=== PATIENT | female | born 1980 | race Caucasian/White ===

== ENCOUNTER 2017-09-15 07:51 | Inpatient (IN) ==
--- OUTSIDE RECORDS SUMMARY | 2017-09-15 07:56 | External Medical Summary | Continuity of Care Document ---
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) - (routine) w/o abn findings 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 (general) - (routine) w/o abn findings Supervision of elderly multigravida, - second trimester 17 weeks gestation of - Supervision of elderly multigravida, - first trimester 10 weeks gestation of - Supervision of elderly multigravida, - second trimester 14 weeks gestation of - Pap Smear Screening, Cervix - Procedures Procedure Date OB Visit No Charge Results Test Name Date and Time Measure Units Reference Range Abnormal Flag Comments Unknown Advance Directives Directive Yes / No Effective Date File Name Unknown Encounters Encounter Practice Location Reason(s) Diagnoses Date Provider Care Team Description For Visit Members Associates Jayesh Supervision Bhupinder Referring In Womens of elderly -2016 Francois. 700 Provider: brea Pemberton, Medical Francois [address], [facility] Bhupinder Khan, Alexis [place], [id number] Jose Alfredo 120, 700 Medical [id number], josefina [facility] [place] gestation of [place], Jose Alfredo 120, tel:+ [phone], [place], [address] [place]. [id number]. tel: tel: [phone] Ashely Mcc[place] Supervision Bhpuinder Referring In Womens of elderly -2016 [place]. 700 Provider: aisha Pembertongravida, Medical Francois [address], second Center Bhupinder Khan, [place], [id number] Jose Alfredo 120, 700 Medical [id number], weeks Jayesh Ackerman gestation of [place], Jose Alfredo 120, tel:+ [phone], [place], [address] [place]. [id number]. tel: tel: [phone] Ashely [place] Supervision Bhupinder Referring In Womens of elderly -2016 [place]. 700 Provider: aisha Pembertongravida, Medical Francois [address], first Center Bhupinder Khan [place], Jose Alfredo 120, 700 Medical [id number], weeks Jayesh Ackerman gestation of [place], Jose Alfredo 120, tel:+ [phone], [place], [address] [place]. [id number]. 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 Provider: Health GENO, (general) 700 Sherry [address], (routine) w/o Alexis Kumari [place], [facility] Center Makeda Khan [facility] , findingsPap Jose Alfredo 120, Center Dr BISWAS Smear [place], Jose Alfredo 120, tel: Screening, [place], [place], [address] Cervix [id number], [id number]. [place]. 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 Provider: Health GENO, (general) 700 Sherry [address], (routine) w/o [place], abn findings Center Makeda Khan [facility] [id number], Jose Alfredo 120, Center Dr [place], Jose Alfredo 120, tel:[phone] [place], [address] [id number], [id number]. [place]. tel:9 [phone] Ashely Jayesh Elder In Womens -2010 [facility] [place], [address], [place], [place], [place], [place], [id number], [place], [address], [place]. tel:21 [phone] Family History Family Member Diagnosis Age At Onset Maternal Grandmother Hypertension Mother COPD Mother Epilepsy Paternal Aunt Cancer, breast Immunizations Vaccine Date Status Comments Influenza, injectable, quadrivalent, completed Source: Other Provider preservative free, 3 yrs or older Payers Payer name Insurance type Covered green party ID Authorization(s) [facility] [id number] [facility] [place] [id number] Social History Type Description Quantity Date Captured Alcohol Use Details Caffeine Use Details Unknown Tobacco Use Status Smoking Status Former smoker Vital Signs Date / Height Weight BMI Pulse Blood Temperature Respiratory Body Head BMI Time: Rate Pressure Rate Surface Circumference percentile Area 133.90 26.1 / lbs 5 mm[Hg] 4:33 kg/m PM eter (2) Chief Complaint And Reason For Visit Unknown Chief Complaint And Reason For Visit Reason For Referral Reason For Referral Unknown Plan Of Care Date Type Action Status Future Order: Lab Order Pap Smear With HPV Reflex If ASCUS Ordered ([id number]) Date Type Problem Goal Intervention Status Start Date Unknown. History Of Present Illness Encounter Date Complaint History Of Present Illness This patient has no known history of present illness Functional Status Encounter Date Functional Assessment Cognitive Assessment Unknown Medications Administered Medication Instructions Dosage Effective Dates (start - stop) Status Comments Drug Treatment Unknown Instructions Date Instruction Additional Information influenza vaccine environmental / work hazards travel use of any medications (including supplements, vitamins, herbs, OTC drugs) domestic violence seat belt use childbirth classes / hospital facilities hospital registration genetic testing Zika virus assessment & precautions HIV and other routine tests risk factors identified by history anticipated course of care nutrition and weight gain counseling, special diet toxoplasmosis precautions (cats / raw meat) sexual activity exercise indications for ultrasound
--- OUTSIDE RECORDS SUMMARY | 2017-09-15 07:56 | External Medical Summary | Continuity of Care Document ---
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) - (routine) w/o abn findings 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 exam (general) - (routine) w/o abn findings Abnormal glucose complicating - Supervision of elderly multigravida, - first trimester 10 weeks gestation of - Supervision of elderly multigravida, - second trimester 20 weeks gestation of - Supervision of elderly multigravida, - second trimester 20 weeks gestation of - Supervision of elderly multigravida, - second trimester 24 weeks gestation of - Supervision of elderly multigravida, - second trimester 17 weeks gestation of - Supervision of elderly multigravida, - second trimester 14 weeks gestation of - Supervision of elderly multigravida, - third trimester 30 weeks gestation of - Supervision of elderly multigravida, - third trimester Encounter for suprvsn of normal - , third trimester 28 weeks gestation of - Pap Smear Screening, Cervix - Procedures Procedure Date Glucose tolerance test (GTT) GTT-added samples Venpnctr fngr/heel/ear stick routne Results Test Name Date and Time Measure Units Reference Range Abnormal Flag Comments Unknown Advance Directives Directive Yes / No Effective Date File Name Unknown Encounters Encounter Practice Location Reason(s) Diagnoses Date Provider Care Team Description For Visit Members Ashely [place] Supervision of Nov-0 Bhupinder Referring In Womens elderly 3-201 [place]. 700 Provider: Health GENO, multigravida, 7 Medical [facility] Box third [id number] Center Bhupinder R, 1522, weeks gestation Jose Alfredo Khan, of 120, Medical [place], [facility] [id number], [place], Jose Alfredo 120, [place] [id number] Jayesh, tel: , [place]. [place], tel: [phone]. [id number] tel:[phone] Ashely [place] Abnormal glucose Oct-2 Bhupinder Referring In Womens complicating -201 [place]. 700 Provider: Health GENO, 7 Medical [facility] Bhupinder R, 1522, Jose Alfredo Khan, 120, Medical [facility] [id number], [place], Jose Alfredo 120, [place] [id number] Jayesh, tel: , [place]. [place], tel: [phone]. [id number] tel:[phone] Ashely [place] Supervision of Oct-1 Bhupinder Referring In Womens elderly 9-201 [place]. 700 Provider: Health GENO, multigravida, 7 Medical [facility] Box third Center Bhupinder R, 1522, trimesterEncounte Dr Jose Alfredo emerson Rousseau for suprvsn of 120, Medical [place], normal , [facility] [id number], third [place], Jose Alfredo 120, [place] weeks gestation [id number] Jayesh, tel: of , [place]. [place], tel: [phone]. [id number] tel:[phone] Ashely [place] Supervision of Sep-2 Bhupinder Referring In Womens elderly [place]. 700 Provider: Cheri LORA multigravida, 7 Medical [place] PO Box second Center Bhupinder R, 1522, [id number] weeks Jose Alfredo Khan, gestation of 120, Medical [place], Jayesh, [place] [id number], [place], Jose Alfredo 120, [place] [id number] Jayesh, tel:+ , [place]. [place] tel: [phone]. [id number] tel:[phone] Ashely [place] Supervision of Bhupinder Referring In Womens elderly [place]. 700 Provider: aisha Pembertongravimeilnda, 7 Medical [place] PO Box second Center Bhupinder R, 1522, [email or web address] weeks Jose Alfredo Khan, gestation of 120, Medical [place], Jayesh, [place] [id number], [place], Jose Alfredo 120, [place] [id number] Jayesh, tel:+ , [place]. [place] tel: [phone]. [id number] tel:[phone] Ashely [place] Supervision of Bhupinder Referring In Womens [facility] elderly [place]. 700 Provider: lorena Pembertonavimelinda, 7 Medical [place] PO Box second Center Bhupinder R, 1522, weeks Jose Alfredo Khan, gestation of 120, Medical [place], [facility] [id number], [place], Jose Alfredo 120, [place] [id number] Jayesh, tel:+ , [place]. [place] tel: [phone]. [id number] tel:[phone] Ashely [place] Supervision of Apr-0 Bhupinder Referring In Womens elderly [place]. 700 Provider: aisha Pembertongravida, 7 Medical [place] PO Box second Center Bhupinder R, 1522, weeks Jose Alfredo Khan, gestation of 120, Medical [place], Jayesh, [place] [id number], [place], Jose Alfredo 120, [place] [id number] Jayesh, tel: , [place]. [place] tel: [phone]. [id number] tel:[phone] Ashely [place] Supervision of Bhupinder Referring In Womens elderly [place]. 700 Provider: Health PA, multigravida, 7 Medical Francois PO Box second Center Bhupinder R, 1522, [email or web address] weeks , Jose Alfredo Espinoza, gestation of 120, Medical [place], [place], [place] [id number], [place], [facility] 120, [place] [id number] Jayesh, tel:+ , [place]. [place], tel: [phone]. [id number] tel:[phone] Asheyl [place] Supervision of Bhupinder Referring In Womens elderly [place]. 700 Provider: Cheri LORA, multigravida, 7 Medical Francois PO Box first [id number] Center Bhupinder R, 1522, weeks gestation , Jose Alfredo Rainta, of 120, Medical [facility] [id number], [place], [facility] 120, [place] [id number] Jayesh, tel: , [place]. [place], tel: [phone]. [id number] tel:[phone] Ashely [place] 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 pumper Eric Referring In Womens exam (general) Sherry. Provider: Cheri LORA, (routine) w/o abn 7 700 Sherry PO Box findingsPap Smear Candy Dhillon, 1522, Screening, Cervix Center Makeda [address] Dr, [facility], 120, [place] [id number], [facility] 120, [place] Jayesh [place], tel:+ [phone] [place], , [place]. [id number]. tel: tel: [phone] Ashely [place] 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 pumper Sep- Reyes Referring In Womens exam (general) Sherry. Provider: Cheri LORA, (routine) w/o abn 6 700 Sherry PO Box findings Candy Dhillon, 1522, Center Makeda [address] Dr, [facility], 120, [place] [id number], [facility] 120, [place] Jayesh [place], tel: [phone] [place], , [place]. [id number]. tel: tel:[phone] Ashely [place] Dec-2 Elder In Womens [facility], [address], [place], [place], [place], [address], [id number], [place]. [place] tel: [phone] Family History Family Member Diagnosis Age At Onset Maternal Grandmother Hypertension Mother COPD Mother Epilepsy Paternal Aunt Cancer, breast Immunizations Vaccine Date Status Comments Tdap completed Source: New Immunization Record Influenza, injectable, completed Source: Other Provider quadrivalent, preservative free, 3 yrs or older Influenza, injectable, completed Source: Other Provider quadrivalent, preservative free, 3 yrs or older Payers Payer name Insurance type Covered libertarian ID Authorization(s) [facility] [id number] [facility] [id number] Social History Type Description Quantity Date Captured Unknown Vital Signs Date / Height Weight BMI Pulse Blood Temperature Respiratory Body Head BMI Time: Rate Pressure Rate Surface Circumference percentile Area Unknown Chief Complaint And Reason For Visit Unknown Chief Complaint And Reason For Visit Reason For Referral Reason For Referral Unknown Plan Of Care Date Type Action Status Appointment Lety Bacon BOOKED Future Order: Radiology Order OB Detailed Complete Ultrasound Ordered ([id number]) Future Order: Lab Order Pap Smear With [...]
--- OUTSIDE RECORDS SUMMARY | 2017-09-15 07:56 | External Medical Summary | Continuity of Care Document ---
:1980 Author Organization [facility] Address [address] [place], [place] [id number] Phone Support Name Relationship Address Phone Link Bacon spouse [address] [place] [address] Allergies, Adverse Reactions, Alerts Substance Reaction Severity Status No Known Drug Allergies Unknown Active Medications Medication Instructions Dosage Effective Dates Status Comments (start - stop) ZYRTEC (unknown - Active strength) Tums 200 mg calcium - Active (500 mg) chewable tablet ORAL TABLET - Active Tylenol 325 mg tablet take 1 tablet by oral - Active route every 4 hours as needed Problems Condition Effective Dates (start - stop) Clinical Status 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) - (routine) w/o abn findings 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) - (routine) w/o abn findings Supervision of elderly multigravida, - third trimester 34 weeks gestation of - Supervision of elderly multigravida, - first trimester 10 weeks gestation of - Supervision of elderly multigravida, - third trimester Abnormal glucose complicating - 32 weeks gestation of - Supervision of elderly [...] of elderly multigravida, - third trimester Encounter For Screening For - Streptococcus B 36 weeks gestation of - Supervision of elderly multigravida, - third trimester 30 weeks gestation of - Supervision of elderly multigravida, - third trimester 37 weeks gestation of - Supervision of elderly multigravida, - third trimester Encounter for suprvsn of normal - , third trimester 28 weeks gestation of - Supervision of elderly multigravida, - third trimester 36 weeks gestation of - Abnormal glucose complicating - Pap Smear Screening, Cervix - Procedures Procedure Date OB Visit No Charge Results Test Name Date and Time Measure Units Reference Range Abnormal Flag Comments Unknown Advance Directives Directive Yes / No Effective Date File Name Unknown Encounters Encounter Practice Location Reason(s) Diagnoses Date Provider Care Team Description For Visit Members Ashely [place] Supervision of Bhupinder Referring In Womens elderly [place]. 700 Provider: brea Pemberton, 7 Medical Francois PO Box third [id number] Center Bhupinder R, 1522, weeks gestation Jose Alfredo Khan, of 120, Medical [place], Briseida [place] [id number], [place], Jose Alfredo 120, [place] [id number] Jayesh, tel: , [place]. [place], [id number] tel: [phone]. [id number] tel:[phone] Ashely [place] Supervision of Bhupinder Referring In Womens elderly [place]. 700 Provider: lorena Pembertonavimelinda, 7 Medical Francois PO Box third Center Bhupinder R, 1522, trimesterEncounte Jose Alfredo Khan 700 [place], r For 120, Medical [place], Screening For Briseida [place] Dr [id number], Streptococcus B36 [place], Jose Alfredo 120, [place] weeks gestation [id number] Jayesh, tel: of , [place]. [place] tel: [phone]. [id number] tel:[phone] Ashely Mcc[place] Supervision of Dec-1 Bhupinder Referring In Womens Ultrasound elderly 3- [place]. 700 Provider: aisha Pembertongravimelinda, 7 Medical [place] PO Box third [email or web address] Center Bhupinder R, 1522, weeks gestation Jose Alfredo Khan, of 120, Medical [facility] [id number], [place], Jose Alfredo 120, [place] [id number] Jayesh, tel: , [place]. [place], tel: [phone]. [id number] tel:[phone] Ashely M[place] Supervision of Dec-0 Bhupinder Referring In Womens elderly 1- [place]. 700 Provider: brea Pemberton, 7 Medical [place] PO Box third [email or web address] Center Bhupinder R, 1522, weeks gestation Jose Alfredo Khan, of 120, Medical [facility] [id number], [place], Jose Alfredo 120, [place] [id number] Jayesh, tel: , [place]. [place], tel: [phone]. [id number] tel:[phone] Ashely [place] Supervision of Jul-1 Bhupinder Referring In Womens elderly 7- [place]. 700 Provider: brea Pemberton, 7 Medical [place] PO Box third Center Bhupinder R, 1522, trimesterAbnormal Jose Alfredo Khan [place], glucose 120, Medical [place], complicating Briseida [place] Dr [id number], [email or web address] weeks GARIMA, Jose Alfredo 120, [place] gestation of [id number] Jayesh, tel: , [place]. [place] tel: [phone]. [id number] tel:[phone] Ashely M[place] Supervision of Nov-0 Bhupinder Referring In Womens elderly 3-201 [place]. 700 Provider: lorena Pembertonavimleinda, 7 Medical [place] PO Box third [id number] Center Bhupinder R, 1522, weeks gestation Jose Alfredo Khan, of 120, Medical [facility] [id number], [place], Jose Alfredo 120, [place] [id number] Jayesh, tel: , [place]. [place] tel: [phone]. [id number] tel:[phone] Ashely M[place] Abnormal glucose Oct-2 Bhupinder Referring In Womens complicating 3-201 [place]. 700 Provider: Health GENO, 7 [facility] Center Bhupinder R, 1522, , Jose Alfredo Makeda [place], 120, Medical [place], [facility] [id number], [place], Jose Alfredo 120, [place] [id number] Jayesh, tel: , [place]. [place], tel: [phone]. [id number] tel:[phone] Ashely Mccon[place] Supervision of Oct-1 Bhupinder Referring In Womens elderly 9-201 [place]. 700 Provider: Health GENO, multigravida, 7 [facility] third Center Bhuipnder R, 1522, trimesterEncounte , Jose Alfredo 700 [place], r for suprvsn of 120, Medical [place], normal , [facility] [id number], third [id number] [place], Jose Alfredo 120, [place] weeks gestation [id number] Jayesh, tel: of , [place]. [place] tel: [phone]. [id number] tel:[phone] Ashely Mcconnell Supervision of Sep-2 Bhupinder Referring In Womens elderly 1-201 [place]. 700 Provider: Health GENO, multigravida, 7 [facility] second Center Bhupinder R, 1522, [id number] weeks Jose Alfredo Khan, gestation of 120, Medical [place], [facility] [id number], [place], Jose Alfredo 120, [place] [id number] Jayesh, tel: , [place]. [place] tel: [phone]. [id number] tel:[phone] Ashely Mcconnell Supervision of Aug-2 Bhupinder Referring In Womens elderly 4-201 [place]. 700 Provider: Health GENO, multigravida, 7 [facility] second Center Bhupinder R, 1522, [id number] weeks Jose Alfredo Khan, gestation of 120, Medical [place], Jayesh, [place] [id number], [place], Jose Alfredo 120, [place] [id number] Jayesh, tel: , [place]. [place] tel: [phone]. [id number] tel:[phone] Ashely Mcconnell Supervision of Bhupinder Referring In Womens Ultrasound elderly - [place]. 700 Provider: lorena Pembertonavimelinda, 7 Medical [facility] Box second Center Bhupinder R, 1522, weeks Jose Alfredo Khan, gestation of 120, Medical [place], Jayesh, [place] [id number], [place], Jose Alfredo 120, [place] [id number] Jayesh, tel: , [place]. [place], tel: [phone]. [id number] tel:[phone] Ashely Mcconnell Supervision of Bhupinder Referring In Womens elderly 3- [place]. 700 Provider: brea Pemberton, 7 Medical [facility] Box second Center Bhupinder R, 1522, [id number] weeks Jose Alfredo Khan, gestation of 120, Medical [place], Jayesh, [place] [id number], [place], Jose Alfredo 120, [place] [id number] Jayesh, tel: , [place]. [place] tel: [phone]. [id number] tel:[phone] Ashely Mcconnell Supervision of Bhupinder Referring In Womens elderly - [place]. 700 Provider: brea Pemberton, 7 Medical [facility] Box second Center Bhupinder R, 1522, [email or web address] weeks Jose Alfredo Khan, gestation of 120, Medical [place], Jayesh, [place] [id number], [place], Jose Alfredo 120, [place] [id number] Jayesh, tel: , [place]. [place] tel: [phone]. [id number] tel:[phone] Ashely Mcconnell Supervision of Bhupinder Referring In Womens elderly - [place]. 700 Provider: brea Pemberton, 7 Medical [facility] Box first [id number] Center Bhupinder R, 1522, weeks gestation Jose Alfredo Khan, of 120, Medical [place], Jayesh, [place] [id number], [place], Jose Alfredo 120, [place] [id number] Jayesh, tel: , [place]. [place] tel: [phone]. [id number] tel:[phone] Ashely Mcconnell Encntr for slat grader Oct-0 Eric Referring In Womens exam (general) Sherry. Provider: Health GENO, (routine) w/o abn 7 700 Sherry PO Box findingsPap Smear Medical Eric J, 1522, Screening, Cervix Center [address] Dr Alexis, [facility] Medical [place], 120, Center [id number], Jayesh, [facility] 120, Jayesh [place], tel:[phone] [place], , [place]. [id number]. tel: tel:[phone] Ashely Mcconnell Encntr for slat grader Eric Referring In Womens exam (general) Sherry. Provider: Cheri LORA, (routine) w/o abn 6 700 Sherry PO Box findings Medical Eric J, 1522, Center [address] Dr Alexis, [facility] Medical [place], 120, [place] [id number], Jayesh, [facility] 120, Jayesh [place], tel:[phone] [place], , [place]. [id number]. tel: tel:[phone] Ashely Mcconnell Elder In Womens Jackie. Health GENO, [address] [place], 1522, [place], [place], [address], [id number], [place]. [place] tel: tel:[phone] Family History Family Member Diagnosis Age At [...] Insurance type Covered green party ID Authorization(s) [facility] [id number] [facility] [id number] Social History Type Description Quantity Date Captured Alcohol Use Details Caffeine Use Details Unknown Tobacco Use Status Smoking Status Former smoker Vital Signs Date / Height Weight BMI Pulse Blood Temperature Respiratory Body Head BMI Time: Rate Pressure Rate Surface Circumference percentile Area 158.60 30.9 117/2017 lbs 7 mm[Hg] 3:06 kg/m PM eter (2) Chief Complaint And Reason For Visit Unknown Chief Complaint And Reason For Visit Reason For Referral Reason For Referral Unknown Plan Of Care Date Type Action Status Appointment Lety Bacon BOOKED Future Order: Radiology Order OB Detailed Complete Ultrasound Ordered ([id number]) Future Order: Radiology Order Ultrasound OB Follow-up ([id number]) Ordered Future Order: Lab Order Pap Smear With [...]
--- OUTSIDE RECORDS SUMMARY | 2017-09-15 07:56 | External Medical Summary | Continuity of Care Document ---
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 700 Provider: aisha Pembertongravimelinda, 7 Medical Francois [address] third Center Bhupinder R, 1522, trimesterAbnormal , Jose Alfredo 700 Alexis, glucose 120, Medical [place], complicating [facility] [id number], [id number] weeks [place], [facility] 120, [place] gestation of [id number] Jayesh, tel: , [place]. [place], tel: [phone]. [id number] tel:[phone] Ashely Mcconnell Supervision of 0 Bhupinder Referring In Womens elderly - Roy. 700 Provider: Cheri LORA, lroenaavimelinda, 7 Medical Francois [address] third [id number] Center Bhupinder R, 1522, weeks gestation Jose Alfredo Khan, of 120, Medical [facility]esh [facility] [id number], [place], Jose Alfredo 120, [place] [id number] Jayesh, tel: , . [place], tel: [phone]. [id number] tel:[phone] Ashely Mcconnell Abnormal glucose Oct-2 Bhupinder Referring In Womens complicating -201 Roy. 700 Provider: Cheri LORA, 7 Medical [facility] Box Center Bhupinder R, 1522, Dr Jose Alfredo Makeda Espinoza, 120, Medical [facility] [id number], [place], Jose Alfredo 120, [place] [id number] Jayesh, tel: , [facility] tel: [phone]. [id number] tel:[phone] Ashely Mcconnell Supervision of Bhupinder Referring In Womens elderly Roy. 700 Provider: lorena Pembertonavimelinda, 7 [facility] third Center Bhupinder R, 1522, trimesterEncounte Jose Alfredo Khan 700 [place], r for suprvsn of 120, Medical [place], normal , [address] [id number], third [id number] [place], Jose Alfredo 120, [place] weeks gestation [id number] Jayesh, tel: of , [place]. [place], tel: [phone]. [id number] tel:[phone] Ashely Mcconnell Supervision of Sep-2 Bhupinder Referring In Womens elderly Roy. 700 Provider: brea Pemberton, 7 [facility] second Center Bhupinder R, 1522, [id number] weeks Jose Alfredo Khan, gestation of 120, Medical [place], Jayesh, [place] , [place], Jose Alfredo 120, [place] [id number] Jayesh, tel: , [place]. [place], tel: [phone]. [id number] tel:[phone] Ashely Mcconnell Supervision of Apr- Bhupinder Referring In Womens elderly Roy. 700 Provider: rbea Pemberton, 7 Medical [facility] second Center Bhupinder R, 1522, [id number] weeks Jose Alfredo Khan, gestation of 120, Medical [place], Jayesh, [place] [id number], [place], Jose Alfredo 120, [place] [id number] Jayesh, tel: , [place]. [place], tel: [phone]. [id number] tel:[phone] Ashely Mcconnell Supervision of Apr-2 Bhupinder Referring In Womens Ultrasound elderly Roy. 700 Provider: brea Pemberton, 7 [facility] second Center Bhupinder R, 1522, [email or web address] weeks Jose Alfredo Khan, gestation of 120, Medical [place], Jayesh, Briseida Khan [id number], [place], Jose Alfredo 120, [place] [id number] Jayesh, tel: , [place]. [place] tel: [phone]. [id number] tel:[phone] Ashely Mcconnell Supervision of Bhupinder Referring In Womens elderly 3-201 Roy. 700 Provider: aisha Pembertongravimelinda, 7 Medical Francois [address] second Center Bhupinder R, 1522, [id number] weeks Jose Alfredo Khan, gestation of 120, Medical [place], Mcconnell, [place] [id number], [place], [facility] 120, [place] [id number] Jayesh, tel: , [place]. [place], tel: [phone]. [id number] tel:[phone] Ashely Mcconnell Supervision of Bhupinder Referring In Womens elderly 3-201 Roy. 700 Provider: aisha Pembertongravimelinda, 7 Medical Francois PO Box second Center Bhupinder R, 1522, weeks , Jose Alfredo Escalantechita, gestation of 120, Medical [place], Mcconnell, [place] [id number], [place], [facility] 120, [place] [id number] Jayesh, tel: , [place]. [place], tel: [phone]. [id number] tel:[phone] Ashely Mcconnell Supervision of Bhupinder Referring In Womens elderly 4-201 Roy. 700 Provider: brea Pemberton, 7 Medical Francois PO Box first [email or web address] Center Bhupinder R, 1522, weeks gestation , Jose Alfredo Espinoza, of 120, Medical GARIMA [facility] [id number], [place], [facility] 120, [place] [id number] Jayesh, tel: , [place]. [place], tel: [phone]. [id number] tel:[phone] Ashely Mcconnell Encntr for armhole sewer Eric Referring In Womens exam (general) - Sherry. Provider: Cheri LORA, (routine) w/o abn Sherry PO Box findingsPap Smear Medical Eric J, 1522, Screening, [facility] [address], [facility], 120, Center [id number], Mcconnell, [facility] 120, [place] Jayesh PAINTING, tel: [phone] [place], , [place]. [id number]. tel: tel: [phone] Associates Jayesh Encntr for armhole sewer Reyes Referring In Womens exam (general) Sherry. Provider: Health GENO, (routine) w/o abn 6 700 Sherry PO Box findings Medical Reyes J, 1522, Center 700 Dr Alexis, Jose Alfredo Medical [place], 120, Center Dr [id number], Jayesh, [facility] 120, [place] Jayesh PAINTING, tel:[phone] [place], [id number] , [place]. [id number]. tel: tel:[phone] Ashely Mcconnell Elder In Womens 9 Jackie. Health GENO, [address] [place], 1522, Alexis, [place], [place], [address], [id number], [place]. [place] tel: tel:[phone] Family History Family Member Diagnosis Age At Onset Maternal Grandmother Hypertension Mother COPD Mother Epilepsy Paternal Aunt Cancer, breast Immunizations Vaccine Date Status Comments Tdap completed Source: New Immunization Record Influenza, injectable, completed Source: Other Provider quadrivalent, preservative free, 3 yrs or older Influenza, injectable, completed Source: Other Provider quadrivalent, preservative free, 3 yrs or older Payers Payer name Insurance type Covered democrat ID Authorization(s) [facility] [id number] [facility] [id number] Social History Type Description Quantity Date Captured Alcohol Use Details Caffeine Use Details Unknown Tobacco Use Status Smoking Status Former smoker Vital Signs Date / Height Weight BMI Pulse Blood Temperature Respiratory Body Head BMI Time: Rate Pressure Rate Surface Circumference percentile Area 152.00 29.6 lbs 8 mm[Hg] 3:23 kg/m PM eter (2) Chief Complaint And Reason For Visit Unknown Chief Complaint And Reason For Visit Reason For Referral Reason For Referral Unknown Plan Of Care Date Type Action Status Appointment Lety Bacon BOOKED Future Order: Radiology Order OB Detailed Complete Ultrasound Ordered ([id number]) Future Order: Lab Order Pap Smear With [...]
--- OUTSIDE RECORDS SUMMARY | 2017-09-15 07:56 | External Medical Summary | Continuity of Care Document ---
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 700 Provider: lorena Pembertonavimelinda, 7 Medical [place] [address], second Center Alexis Rodriguez [place], [id number] Jose Alfredo Khan [id number], weeks 120, Medical [place] gestation of [facility] tel: [place], Jose Alfredo 120, [id number] [facility] , [place]. [place], tel:[phone]. [id number] tel:[phone] Ashely Mcconnell Supervision Bhupinder Referring In Womens of elderly 4-201 [place]. 700 Provider: lorena Pembertonavimelinda, 7 Medical [place] [address], second Center Alexis Rodriguez MA, [id number] Jose Alfredo Khan [id number], weeks 120, Medical [place] gestation of [facility] tel: [place], Jose Alfredo 120, [address] [id number] [facility] , . [place], tel:[phone]. [phone] tel:[phone] Ashely Mcconnell Supervision Bhupinder Referring In Womens Ultrasound of elderly 4-201 [place]. 700 Provider: lorena Pembertonavimelinda, 7 Medical [place] [address], second Center Alexis Rodriguez KS, [id number] Jose Alfredo Khan [id number], weeks 120, Medical [place] gestation of [facility] tel: [place], Jose Alfredo 120, [address] [id number] [facility]. [place], tel:[phone]. [id number] tel:[phone] Ashely Mcconnell Supervision Apr-0 Bhupinder Referring In Womens of elderly 3-201 [place]. 700 Provider: lorena Pembertonavimelinda, 7 Medical [place] [address], second Center Alexis Rodriguez MA, [email or web address] Jose Alfredo Khan [id number], weeks 120, Medical [place] gestation of [facility] tel: [place], Jose Alfredo 120, [address] [id number] [facility]. [place], tel:[phone]. [phone] tel:[phone] Ashely Mcconnell Supervision Mar- Bhupinder Referring In Womens of elderly 3-201 [place]. 700 Provider: Health GENO, multigravida, 7 Medical [place] [address], second Center Alexis Rodriguez MA, [id number] , [place] [id number], weeks 120, Medical gestation of [facility] tel: [place], Jose Alfredo 120, [id number] [place], , [place]. [place], tel: [phone]. [id number] tel:[phone] Ashely Mcconnell Supervision Feb- Bhupinder Referring In Womens of elderly 4-201 [place]. 700 Provider: Cheri LORA multigravida, 7 Medical [place] [address], first Center Alexis Rodriguez MA, [email or web address] , [place] [id number], weeks 120, Medical [place] gestation of [facility] tel: [place], Jose Alfredo 120, [id number] [place], , [place]. [place], tel: [phone]. 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 Provider: Health GENO, (general) 7 Sherry [address], (routine) w/o [place] Kumari [place], abn Center [facility] [id number], findingsPap , [facility] Smear 120, Center tel: Screening, Mcconnell, [facility] 120, [address] Cervix GARIMA, Jayesh, [id number] [place], , [place]. [id number]. 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 Provider: Health GENO, (general) 6 700 Sherry [address], (routine) w/o [place] Kumari [place], abn findings Center [facility] [id number], [facility] [place] 120, Center tel: Mcconnell, Jose Alfredo 120, [address] [place], Jayesh, [id number] [place], , [place]. [id number]. tel: tel: [phone] Ashely Mcconnell Elder In Womens 9-201 Jackie. [employer] [place], [address], [place], [place], [place], [place], [id number], [place] [address], tel:[phone] [place]. [address] tel: [phone] Family History Family Member Diagnosis Age At Onset Maternal Grandmother Hypertension Mother COPD Mother Epilepsy Paternal Aunt Cancer, breast Immunizations Vaccine Date Status Comments Influenza, injectable, quadrivalent, completed Source: Other Provider preservative free, 3 yrs or older Payers Payer name Insurance type Covered alliance party ID Authorization(s) [facility] [place] [id number] Social History Type Description Quantity Date Captured Alcohol Use Details Caffeine Use Details Unknown Tobacco Use Status Smoking Status Former smoker Vital Signs Date / Height Weight BMI Pulse Blood Temperature Respiratory Body Head BMI Time: Rate Pressure Rate Surface Circumference percentile Area 145.20 28.3 100/65 -2016 lbs 5 mm[Hg] 4:21 kg/m PM eter (2) 145.20 28.3 -2016 lbs 5 4:20 kg/m PM eter (2) 26.7 -2016 3 4:18 kg/m PM eter (2) Chief Complaint And Reason For Visit Unknown Chief Complaint And Reason For Visit Reason For Referral Reason For Referral Unknown Plan Of Care Date Type Action Status Appointment Lety Bacon BOOKED Future Order: Radiology Order OB Detailed Complete Ultrasound Ordered ([id number]) Future Order: Lab Order Pap Smear With [...]
[2017-09-15] MEDS ORDERED: CALCIUM CARBONATE Chewable 500mg TABLET PO PRN (07:57)
[2017-09-15] MEDS ORDERED: MAG-AL + SIM ORAL LIQUID 30ml PO PRN (07:57)
[2017-09-15] MEDS ORDERED: CARBOPROST 250 MCG/ML INJECTION IM PRN (07:57)
[2017-09-15] MEDS ORDERED: ACETAMINOPHEN 500 MG TABLET PO PRN (07:57)
[2017-09-15] MEDS ORDERED: OXYTOCIN DRIP 30 UNIT/500 ML ML IV PRN (07:57)
[2017-09-15] MEDS ORDERED: LIDOCAINE 1% (10mg/ml) 2mL INJ PF SDV ID PRN (07:57)
[2017-09-15] MEDS ORDERED: METHYLERGONOVINE 0.2 MG/ML INJECTION IM PRN (07:57)
--- OUTSIDE RECORDS SUMMARY | 2017-09-15 07:57 | External Medical Summary | Continuity of Care Document ---
:1980 Author Organization [facility] Allergies Active Description Code Type Severity Reaction Onset Reported/ Identified Relationship Clinical to Patient Status Yes No Known 04336 3 N/A N/A Drug 0 Allergies Medications Medication Packaging Start Date Stop Date Route Dosage Sig Tablet 09/27/2013 10/20/2016 MULTIPLE take 1 VITAMINS tablet by oral route every day with food Tablet 11/27/2015 09/29/2016 DESOGEN take 1 tablet by oral route every day Tablet 09/29/2016 10/21/2016 DESOGEN take 1 tablet by oral route every day Tablet 10/21/2016 02/16/2017 DESOGEN take 1 tablet by oral route every day Problems Date Dx Attending Type Code Diagnosis Diagnosed By Coded 05/07/2017 Francois Roe O09.522 Supervision of elderly multigravida, second trimester 05/07/2017 Francois Roe Z3A.20 20 weeks gestation of 07/06/2017 Francois Roe O09.523 Supervision of elderly multigravida, third trimester 07/06/2017 Francois Roe Z34.83 Encounter for suprvsn of normal , third trimester 07/06/2017 Francois Roe Z3A.28 28 weeks gestation of 07/07/2017 Francois Roe O99.810 Abnormal glucose complicating 07/07/2017 Francois Roe O99.810 Abnormal glucose complicating 07/17/2017 Francois Roe O09.523 Supervision of elderly multigravida, third trimester 07/17/2017 Francois Roe Z34.83 Encounter for suprvsn of normal , third trimester 07/17/2017 Francois oRe Z3A.28 28 weeks gestation of 08/26/2017 Francois Roe O09.523 Supervision of elderly multigravida, third trimester 08/26/2017 Francois Roe3A.36 36 weeks gestation of Procedures Code Description [place] [address] OB US, 05/07/2017 DETAILED, SNGL FETUS 60687 Venpnctr 07/02/2017 fngr/heel/ear stick routne 54733 OB Visit No 07/02/2017 Charge 67594 Glucose test 07/02/2017 12894 Hematocrit 07/02/2017 blood count 26870 Hemoglobin 07/02/2017 count, colorimetric 32954 Immuniz 07/02/2017 admnin, 1 vac, sngl/combo 01107 TDAP VACCINE 07/02/2017 >7 IM 96847 Venpnctr 07/06/2017 fngr/heel/ear stick routne 45216 Glucose 07/06/2017 tolerance test (GTT) 16813 GTT-added 07/06/2017 samples 59365 Ultrasnd preg 08/26/2017 uterus, flwup/repeat Results There is no data. Encounters ACCT No. Visit Discharge Status Pt. Type Provider Facility Loc./Unit Complaint Date/Time [id number] 08/26/2017 08/26/2017 [facility] Outpatient Bhupinder, 15:35:00 23:59:59 Francois Santacruz [id number] 08/26/2017 08/26/2017 [facility] Outpatient Bhupinder, 15:15:00 23:59:59 Francois Santacruz [id number] 08/14/2017 08/14/2017 [facility] Outpatient Bhupinder, 15:15:00 23:59:59 Francois Santacruz [id number] 08/05/2017 08/05/2017 [facility] Outpatient Bhupinder, 09:06:00 23:59:59 Francois Santacruz [id number] 07/31/2017 07/31/2017 [facility] Outpatient Bhupinder, 15:15:00 23:59:59 Francois Santacruz [id number] 07/17/2017 07/17/2017 [facility] Outpatient Bhupinder, 15:00:00 23:59:59 Francois Santacruz [id number] 07/06/2017 07/06/2017 [facility] Outpatient Bhupinder, 07:13:00 23:59:59 Francois Santacruz [id number] 07/03/2017 07/03/2017 [facility] Outpatient Bhupinder, 09:57:00 23:59:59 Francois Santacruz [id number] 07/02/2017 07/02/2017 [facility] Outpatient Bhupinder, 15:00:00 23:59:59 Francois Santacruz [id number] 07/02/2017 07/02/2017 [facility] Outpatient John, 00:00:00 23:59:59 Zaira Kumar [id number] 06/04/2017 06/04/2017 [facility] Outpatient Bhupinder, 16:15:00 23:59:59 Francois Santacruz [id number] 05/07/2017 05/07/2017 [facility] Outpatient Bhupinder, 16:00:00 23:59:59 Francois Santacruz [id number] 05/07/2017 05/07/2017 [facility] Outpatient Bhupinder, 15:45:00 23:59:59 Francois Santacruz [id number] 04/16/2017 04/16/2017 [facility] Outpatient Bhupinder, 16:20:00 23:59:59 Francois Santacruz [id number] 03/26/2017 03/26/2017 [facility] Outpatient Bhupinder, 16:30:00 23:59:59 Francois Santacruz [id number] 03/20/2017 03/20/2017 [facility] Outpatient Bhupinder, 08:48:00 23:59:59 Francois Santacruz [id number] 02/25/2017 02/25/2017 [facility] Outpatient Bhupinder, 15:45:00 23:59:59 Francois Santacruz [id number] 10/21/2016 10/21/2016 [facility] Outpatient Reyes, 16:00:00 23:59:59 Sherry Dhillon [id number] 09/29/2016 09/29/2016 [facility] Outpatient Reyes, 10:42:00 23:59:59 Sherry Dhillon [id number] 11/27/2015 11/27/2015 [facility] Outpatient Reyes, 13:09:00 23:59:59 Sherry Dhillon [id number] 10/10/2015 10/10/2015 [facility] Outpatient Reyes, 15:15:00 23:59:59 Sherry Dhillon [id number] 10/02/2015 10/02/2015 [facility] Outpatient Reyes, 08:48:00 23:59:59 Sherry Dhillon [id number] 09/03/2017 Document 16:00:00 Registration [id number] 10/21/2016 Document 16:09:53 Registration
--- OUTSIDE RECORDS SUMMARY | 2017-09-15 07:57 | External Medical Summary | Continuity of Care Document ---
:1980 Author Organization [facility] Address [address] [place], [place] [id number] Phone Support Name Relationship Address Phone Link Bacon spouse [address] [place] [address] Allergies, Adverse Reactions, Alerts Substance Reaction Severity Status No Known Drug Allergies Unknown Active Medications Medication Instructions Dosage Effective Dates Status Comments (start - stop) ZYRTEC (unknown - Active strength) Tylenol 325 mg tablet take 1 tablet by oral - Active route every 4 hours as needed ORAL TABLET - Active Tums 200 mg calcium - Active (500 mg) chewable tablet Problems Condition Effective Dates (start - stop) Clinical Status 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 700 Provider: brea Pemberton, 7 Medical Francois [address] [id number] [place] Bhupinder Santacruz, 1522, weeks gestation Jose Alfredo Khan, of 120, Medical [facility]esh [facility] [id number], [place], [facility] 120, [place] [id number] Jayesh, tel: , [place]. [place], tel: [phone]. [id number] tel:[phone] Ashely Mcconnell Supervision of Bhupinder Referring In Womens elderly [place]. 700 Provider: brea Pemberton, 7 Medical Franc[place] [address] [place] Bhupinder Santacruz, 1522, trimesterAbnormal Jose Alfredo Khan, glucose 120, Medical [place], complicating [facility] [id number], [id number] weeks GARIMA [facility] 120, [place] gestation of [id number] Jayesh, tel: , [place]. [place], tel: [phone]. [id number] tel:[phone] Ashely Mcconnell Supervision of Bhupinder Referring In Womens elderly 3-201 [place]. 700 Provider: lorena Pembertonavimelinda, 7 Medical [place] [address] [email or web address] Center Bhupnider Santacruz, 1522, weeks gestation Jose Alfredo Khan, of 120, Medical Jayesh [facility] [id number], [place], Jose Alfredo 120, [place] [id number] Jayesh, tel: , [place]. [place], tel: [phone]. [id number] tel:[phone] Ashely Mcconnell Abnormal glucose Oct-2 Bhupinder Referring In Womens complicating 3-201 [place]. 700 Provider: Health GENO, 7 [facility] Bhupinder R, 1522, , Jose Alfredo Makeda Espinoza, 120, Medical [place], [facility] [id number], [place], Jose Alfredo 120, [place] [id number] Jayesh, tel: , [place]. [place], tel: [phone]. [id number] tel:[phone] Ashely Mcconnell Supervision of Oct-1 Bhupinder Referring In Womens elderly 9-201 [place]. 700 Provider: Health GENO, multigravida, 7 [facility] third Center Bhupinder R, 1522, trimesterEncounte , [facility] 700 emerson Espinoza for suprvsn of 120, Medical [place], normal , [facility] [id number], third [id number] [place], Jose Alfredo 120, [place] weeks gestation [id number] Jayesh, tel: of , [place]. [place], tel: [phone]. [id number] tel:[phone] Ashely Mcconnell Supervision of Sep-2 Bhupinder Referring In Womens elderly 1-201 [place]. 700 Provider: Health GENO, multigravida, 7 [facility] second Center Bhupinder R, 1522, [email or web address] weeks Jose Alfredo Khan, gestation of 120, Medical [place], [facility] [id number], [place], Jose Alfredo 120, [place] [id number] Jayesh, tel: , [place]. [place], tel: [phone]. [id number] tel:[phone] Ashely Mcconnell Supervision of Aug-2 Bhupinder Referring In Womens elderly 4-201 [place]. 700 Provider: Health GENO, multigravida, 7 [facility] second Center Bhupinder R, 1522, weeks Jose Alfredo Khan, gestation of 120, Medical [place], [facility] [id number], [place], Jose Alfredo 120, [place] [id number] Jayesh, tel: , [place]. [place] tel: [phone]. [id number] tel:[phone] Ashely Mcconnell Supervision of 2 Bhupinder Referring In Womens Ultrasound elderly -201 [place]. 700 Provider: Health GENO, aishagravimelinda, 7 Medical [place] [address] second Center Bhupinder R, 1522, weeks Jose Alfredo Khan, gestation of 120, Medical [place], Jayesh, [place] [id number], [place], Jose Alfredo 120, [place] [id number] Jayesh, tel: , [place]. [place] tel: [phone]. [id number] tel:[phone] Ashely Mcconnell Supervision of 0 Bhupinder Referring In Womens elderly 3-201 [place]. 700 Provider: aisha Pembertongravimelinda, 7 Medical [place] [address] second Center Bhupinder R, 1522, [id number] weeks Jose Alfredo Khan, gestation of 120, Medical [place], Jayesh, [place] [id number], [place], Jose Alfredo 120, [place] [id number] Jayesh, tel: , [place]. [place], tel: [phone]. [id number] tel:[phone] Ashely Mcconnell Supervision of Bhupinder Referring In Womens elderly 3-201 [place]. 700 Provider: Cheri LORA, aishagravimelinda, 7 Medical [place] [address] second Center Bhupinder R, 1522, [id number] weeks Jose Alfredo Khan, gestation of 120, Medical [place], Jayesh, [place] [id number], [place], Jose Alfredo 120, [place] [id number] Jayesh, tel: , [place]. [place] tel: [phone]. [id number] tel:[phone] Ashely Mcconnell Supervision of Bhupinder Referring In Womens elderly 4-201 [place]. 700 Provider: Health GENO, aishagravida, 7 Medical [place] [address] first [id number] Center Bhupinder R, 1522, weeks gestation Jose Alfredo Khan, of 120, Medical GARIMA, Jayesh, [place] [id number], [place], Jose Alfredo 120, [place] [id number] Jayesh, tel: , [place]. [place], tel: [phone]. 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 Provider: Health PA, (routine) w/o abn 7 700 Sherry [address] findingsPap Smear Medical Eric Dhillon, 1522, Screening, [facility] [address] Alexis, [facility] [place], 120, [place] [id number], [facility] 120, Jayesh PAINTING, tel: [phone] [place], , [place]. [id number]. 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 Provider: Health GENO, (routine) w/o abn 6 700 Sherry PO Box findings Medical Eric Dhillon, 1522, Center [address] Dr Alexis, [facility], 120, [place] [id number], [facility] 120, Jayesh PAINTING, tel: [phone] [place], , [place]. [id number]. tel: tel: [phone] Ashely Mcconnell Aug- Elder In Womens Jackie. [facility], [address] [place], 1522, [place], [place], [place], [address], [id number], [place]. [place] tel: tel: [phone] Family History Family Member Diagnosis Age At Onset Maternal Grandmother Hypertension Mother COPD Mother Epilepsy Paternal Aunt Cancer, breast Immunizations Vaccine Date Status Comments Tdap completed Source: New Immunization Record Influenza, injectable, completed Source: Other Provider quadrivalent, preservative free, 3 yrs or older Influenza, injectable, completed Source: Other Provider quadrivalent, preservative free, 3 yrs or older Payers Payer name Insurance type Covered republican ID Authorization(s) [facility] GARIMA ARDON [id number] [facility] GARIMA ARDON [id number] Social History Type Description Quantity Date Captured Alcohol Use Details Caffeine Use Details Unknown Tobacco Use Status Smoking Status Former smoker Vital Signs Date / Height Weight BMI Pulse Blood Temperature Respiratory Body Head BMI Time: Rate Pressure Rate Surface Circumference percentile Area 156.60 30.5 110/68 2017 lbs 8 mm[Hg] 3:14 kg/m PM eter (2) Chief Complaint And Reason For Visit Unknown Chief Complaint And Reason For Visit Reason For Referral Reason For Referral Unknown Plan Of Care Date Type Action Status Appointment Lety Bacon BOOKED Appointment Arleen Lety BOOKED Future Order: Radiology Order OB Detailed Complete Ultrasound Ordered ([id number]) Future Order: Lab Order Pap Smear With [...]
--- OUTSIDE RECORDS SUMMARY | 2017-09-15 07:57 | External Medical Summary | Continuity of Care Document ---
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 700 Provider: aisha Pembertongravida, 7 Medical [place] [address], second Center Alex[place], [id number] Jose Alfredo Khan , weeks 120, Medical [place] gestation of Jayesh [place] tel: [place], Jose Alfredo 120, [id number] [facility]. [place], tel: [phone]. [phone] tel:[phone] Ashely Mcconnell Supervision 2 Bhupinder Referring In Womens Ultrasound of elderly - [place]. 700 Provider: aisha Pembertongravimelinda, 7 [facility] [address], second Center [place], [email or web address] Jose Alfredo Khan [id number], weeks 120, Medical [place] gestation of Jayesh [place] tel: [place], Jose Alfredo 120, [id number] [facility]. [place], tel: [phone]. [id number] tel:[phone] Ashely Mcconnell Supervision 0 Bhupinder Referring In Womens of elderly - [place]. 700 Provider: lorena Pembertonavimelinda, 7 Medical [place] [address], second Center [place], Jose Alfredo Khan [id number], weeks 120, Medical [place] gestation of Jayesh [place] tel: [place], Jose Alfredo 120, [id number] [facility]. [place], tel: [phone]. [id number] tel:[phone] Ashely Mcconnell Supervision Bhupinder Referring In Womens of elderly 3-201 [place]. 700 Provider: aisha Pembertongravimelinda, 7 [facility] [address], second Center [place], Jose Alfredo Khan [id number], weeks 120, Medical [place] gestation of Jayesh [place] tel: [place], Jose Alfredo 120, [id number] [facility]. [place], tel: [phone]. [id number] tel:[phone] Ashely Mcconnell Supervision Bhupinder Referring In Womens of elderly 4-201 [place]. 700 Provider: brea Pemberton, 7 [facility] [address], first Center Bhupinder Santacruz, [place], [place], [id number] , [place] [id number], weeks 120, Medical gestation of [place], [place] tel: [place], Jose Alfredo 120, [id number] [place], , [place]. [place], tel: [phone]. [phone] tel:[phone] [facility] Encntr for Eric Referring In Womens manager behavior exam Sherry. Provider: Health GENO, (general) 7 700 Sherry [address], (routine) w/o [place] Kum[place], [facility] [id number], findingsPap , [facility] Smear 120, [place] tel: Screening, [facility] 120, [address] [place], [place], [id number] [place], , [place]. [id number]. tel: tel: [phone] Ashely Mcconnell Encntr for Eric Referring In Womens manager behavior exam Sherry. Provider: Health GENO, (general) 6 700 Sherry [address], (routine) w/o [place] Kumari [place], abn findings Center [facility] [id number], , [facility] 120, [place] tel: [facility] 120, [address] [place], [place], [id number] [place], , [place]. [id number]. tel: tel: [phone] Ashely Mcconnell Aug- Elder In Womens Jackie. Health GENO, [address], [place], Alex[place], [place], [place], [id number], [place] [address], tel: [place]. [address] tel: [phone] Family History Family Member Diagnosis Age At Onset Maternal Grandmother Hypertension Mother COPD Mother Epilepsy Paternal Aunt Cancer, breast Immunizations Vaccine Date Status Comments Influenza, injectable, quadrivalent, completed Source: Other Provider preservative free, 3 yrs or older Payers Payer name Insurance type Covered green party ID Authorization(s) [facility] [id number] [facility] [place] [id number] Social History Type Description Quantity Date Captured Alcohol Use Details Caffeine Use Details Unknown Tobacco Use Status Smoking Status Former smoker Vital Signs Date / Height Weight BMI Pulse Blood Temperature Respiratory Body Head BMI Time: Rate Pressure Rate Surface Circumference percentile Area 136.90 26.7 103/57 2017 lbs 3 mm[Hg] 4:29 kg/m PM eter (2) Chief Complaint And Reason For Visit Unknown Chief Complaint And Reason For Visit Reason For Referral Reason For Referral Unknown Plan Of Care Date Type Action Status Appointment Lety Bacon BOOKED Future Order: Radiology Order OB Detailed Complete Ultrasound Ordered ([id number]) Future Order: Lab Order Pap Smear With [...]
--- OUTSIDE RECORDS SUMMARY | 2017-09-15 07:57 | External Medical Summary | Continuity of Care Document ---
:1980 Author Organization [facility] Address [address] [place], [place] [id number] Phone Support Name Relationship Address Phone Link Bacon spouse [address] [place] [address] Allergies, Adverse Reactions, Alerts Substance Reaction Severity Status No Known Drug Allergies Unknown Active Medications Medication Instructions Dosage Effective Dates Status Comments (start - stop) ZYRTEC (unknown - Active strength) ORAL TABLET - Active Tylenol 325 mg tablet take 1 tablet by oral - Active route every 4 hours as needed Tums 200 mg calcium - Active (500 mg) chewable tablet Problems Condition Effective Dates (start - stop) Clinical Status 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 700 Provider: aisha Pembertongravimelinda, 7 Medical [place] [address] [id number] Center Bhupinder R, 1522, weeks gestation Jose Alfredo Khan, of 120, Medical [place], [facility] [id number], [place], [facility] 120, [place] [id number] Mcconnell, tel: , [place]. [place], tel: [phone]. [id number] tel:[phone] Ashely Mcconnell Jul- Bhupinder In Womens 2-201 [place]. 700 Cheri LORA, 7 Medical [address] Center 1522, Jose Alfredo Khan, 120, [place], [id number], [place], [place] [id number] tel: , [place]. tel: [phone] Ashely Mcconnell Supervision of Bhupinder Referring In Womens elderly 7-201 [place]. 700 Provider: aisha Pembertongravida, 7 Medical [place] [address] third Center Bhupinder R, 1522, trimesterAbnormal Jose Alfredo Khan, glucose 120, Medical [place], complicating Jayesh [place] [id number], [id number] weeks [place], [facility] 120, [place] gestation of [id number] Jayesh, tel: , [place]. [place], tel: [phone]. [id number] tel:[phone] Ashely Mcconnell Supervision of Nov-0 Bhupinder Referring In Womens elderly 3-201 [place]. 700 Provider: Health PA, multigravida, 7 Medical Franc[place] [address] third Center Bhupinder R, 1522, weeks gestation , Jose Alfredo Makeda Espinoza, of 120, Medical GARIMA, [facility] [id number], [place], Jose Alfredo 120, [place] [id number] Jayesh, tel: , [place]. [place], tel: [phone]. [id number] tel:[phone] Ashely Mcconnell Abnormal glucose Oct-2 Bhupinder Referring In Womens complicating 3-201 [place]. 700 Provider: Health PA, 7 Medical [place] PO Box Center Bhupinder R, 1522, Dr Jose Alfredo Makeda Espinoza, 120, Medical Jayesh [facility] [id number], [place], Jose Alfredo 120, [place] [id number] Jayesh, tel: , [place]. [place], tel: [phone]. [id number] tel:[phone] Ashely Mcconnell Supervision of Oct-1 Bhupinder Referring In Womens elderly 9-201 [place]. 700 Provider: Health PA, multigravida, 7 Medical [place] [address] third Center Bhupinder R, 1522, trimesterEncounte , Jose Alfredo 700 Alexis, r for suprvsn of 120, Medical [place], normal , [facility] [id number], third [place], Jose Alfredo 120, [place] weeks gestation [id number] Jayesh, tel: of , [place]. [place], tel: [phone]. [id number] tel:[phone] Ashely Mcconnell Supervision of Sep-2 Bhupinder Referring In Womens elderly 1-201 [place]. 700 Provider: Health PA, multigravida, 7 Medical [place] PO [address] second Center Bhupinder R, 1522, [id number] weeks Jose Alfredo Khan, gestation of 120, Medical [place], Mcconnell, [place] [id number], [place], Jose Alfredo 120, [place] [id number] Jayesh, tel: , [place]. [place], tel: [phone]. [id number] tel:[phone] Ashely Mcconnell Supervision of Aug-2 Bhupinder Referring In Womens elderly [place]. 700 Provider: Health GENO multigravida, 7 Medical [place] PO [address] second Center Bhupinder R, 1522, [id number] weeks Jose Alfredo Khan, gestation of 120, Medical [place], Jayesh, [place] [id number], [place], Jose Alfredo 120, [place] [id number] Jayesh, tel:+ , [place]. [place] tel: [phone]. [id number] tel:[phone] Ashely Mcconnell Supervision of Bhupinder Referring In Womens Ultrasound elderly [place]. 700 Provider: Cheri LORA multigravimelinda, 7 Medical [place] PO Box second Center Bhupinder R, 1522, [id number] weeks Jose Alfredo Khan, gestation of 120, Medical [place], Jayesh, [place] [id number], [place], Jose Alfredo 120, [place] [id number] Jayesh, tel: , [place]. [place] tel: [phone]. [id number] tel:[phone] Ashely Mcconnell Supervision of Apr-0 Bhupinder Referring In Womens elderly [place]. 700 Provider: aisha Pembertongravimelinda, 7 Medical [place] PO [address] second Center Bhupinder R, 1522, [id number] weeks Jose Alfredo Khan, gestation of 120, Medical [place], Jayesh, [place] [id number], [place], Jose Alfredo 120, [place] [id number] Jayesh, tel: , [place]. [place] tel: [phone]. [id number] tel:[phone] Ashely Mcconnell Supervision of Bhupinder Referring In Womens elderly [place]. 700 Provider: aisha Pembertongravimelinda, 7 [facility] PO Box second Center Bhupinder R, 1522, [email or web address] weeks Jose Alfredo Khan, gestation of 120, Medical [place], Jayesh, [place] [id number], [place], Jose Alfredo 120, [place] [id number] Jayesh, tel: , [place]. [place] tel: [phone]. [id number] tel:[phone] Ashely Mcconnell Supervision of Bhupinder Referring In Womens elderly [place]. 700 Provider: Health GENO, multigravida, 7 Medical [place] [address] first [id number] Center Bhupinder Santacruz, 1522, weeks gestation , [place] [address] Alexis, of 120, Medical GARIMA, Jayesh, [place] [id number], [place], [facility] 120, [place] [id number] Jayesh, tel: , [place]. [place], tel: [phone]. [id number] tel:[phone] Ashely Mcconnell Encntr for special events manager 0 Eric Referring In Womens exam (general) Sherry. Provider: Health GENO, (routine) w/o abn 7 700 Sherry PO Box findingsPap Smear Candy Dhillon, 1522, Screening, [facility] [address], [facility], 120, [place] [id number], [facility] 120, Jayesh PAINTING, tel: [phone] [place], , [place]. [id number]. tel: tel: [phone] Ashely Mcconnell Encntr for special events manager Eric Referring In Womens exam (general) Sherry. Provider: Cheri LORA, (routine) w/o abn 6 700 Sherry PO Box findings Candy Dhillon, 1522, Center Makeda [address], [facility], 120, [place] [id number], [facility] 120, Jayesh PAINTING, tel: [phone] [place], , [place]. [id number]. tel: tel: [phone] Ashely Mcconnell Aug-2 Elder In Womens Jackie. Health GENO, [address] [place], 1522, [place], [address], [id number], [place]. [place] tel: tel: [phone] Family History Family Member Diagnosis Age At [...] name Insurance type Covered republican ID Authorization(s) [facility] GARIMA ARDON [id number] [facility] GARIMA [id number] Social History Type Description Quantity Date Captured Unknown Vital Signs Date / Height Weight BMI Pulse Blood Temperature Respiratory Body Head BMI Time: Rate Pressure Rate Surface Circumference percentile Area Unknown Chief Complaint And Reason For Visit Unknown Chief Complaint And Reason For Visit Reason For Referral Reason For Referral Unknown Plan Of Care Date Type Action Status Appointment ArleenLety BOOKED Appointment Josefina Baconhan BOOKED Future Order: Radiology Order OB Detailed Complete Ultrasound Ordered ([id number]) Future Order: Lab Order Pap Smear With [...]
--- OUTSIDE RECORDS SUMMARY | 2017-09-15 07:57 | External Medical Summary | Continuity of Care Document ---
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 700 Provider: aisha Pembertongravimelinda, 7 Medical [place] [address], second Center Alexis [place], [id number] Jose Alfredo Khan , weeks 120, Medical [place] gestation of [place] tel: [place], Jose Alfredo 120, [id number] [facility]. [place], tel:[phone]. [id number] tel:[phone] Ashely [place] Supervision 2 Bhupinder Referring In Womens Ultrasound of elderly [place]. 700 Provider: aisha Pembertongravimleinda, 7 Medical [place] [address], second Center [place]is [place], Jose Alfredo Khan [id number], weeks 120, Medical [place] gestation of [place] tel: [place], Jose Alfredo 120, [address] [id number] [facility]. [place], tel: [phone]. [id number] tel:[phone] Ashely [place] Supervision Apr-0 Bhupinder Referring In Womens of elderly - [place]. 700 Provider: lorena Pembertonavimelinda, 7 Medical [place] [address], second Center Alexis [place], [id number] Jose Alfredo Khan [id number], weeks 120, Medical gestation of [place] tel: [place], Jose Alfredo 120, [address] [id number] [facility]. [place], tel: [phone]. [id number] tel:[phone] Ashely [place] Supervision Bhupinder Referring In Womens of elderly - [place]. 700 Provider: lorena Pembertonavimelinda, 7 Medical [place] [address], second Center Alexis [place], Jose Alfredo Khan [id number], weeks 120, Medical [place] gestation of [place] tel: [place], Jose Alfredo 120, [address] [id number] [facility]. [place], tel: [phone]. [id number] tel:[phone] Ashely [place] Supervision Feb- Bhupinder Referring In Womens of elderly - [place]. 700 Provider: Health GENO, multigravida, 7 [facility] [address], first Center Bhupinder Santacruz, [place], [place], , [place] [id number], weeks 120, Medical gestation of [place], [place] tel: [place], Jose Alfredo 120, [address] [id number] [place], , . [place], tel: [phone]. [id number] tel:[phone] Ashely [place] Encntr for Reyes Referring In Womens junior oracle dba exam Sherry. Provider: Health GENO, (general) 7 700 [place]ry [address], (routine) w/o Alex[place] Kumari [place], [place] [id number], findingsPap , [facility] Smear 120, [place] tel: Screening, [facility] 120, [address] Cervix [place], [place], [id number] [place], , [place]. [id number]. tel: tel: [phone] Ashely [place] Encntr for Reyes Referring In Womens junior oracle dba exam Sherry. Provider: Health GENO, (general) 6 700 Sherry [address], (routine) w/o Alexis Kumari [place], [facility] findings [place] [id number], , [facility] 120, [place] tel: [facility] 120, [address] [place], [place], [id number] [place], , [place]. [id number]. tel: tel: [phone] Ashely [place] Aug- Elder In Womens Jackie. Health GENO, [address], [facility], [place], [place], [place], [id number], [place] [address], tel: [place]. [phone] tel: [phone] Family History Family Member Diagnosis Age At Onset Maternal Grandmother Hypertension Mother COPD Mother Epilepsy Paternal Aunt Cancer, breast Immunizations Vaccine Date Status Comments Influenza, injectable, quadrivalent, completed Source: Other Provider preservative free, 3 yrs or older Payers Payer name Insurance type Covered green party ID Authorization(s) [facility] [id number] [facility] [id number] Social History Type Description Quantity Date Captured Unknown Vital Signs Date / Height Weight BMI Pulse Blood Temperature Respiratory Body Head BMI Time: Rate Pressure Rate Surface Circumference percentile Area Unknown Chief Complaint And Reason For Visit Unknown Chief Complaint And Reason For Visit Reason For Referral Reason For Referral Unknown Plan Of Care Date Type Action Status Appointment Arleen Lety BOOKED Future Order: Radiology Order OB Detailed Complete Ultrasound Ordered ([id number]) Future Order: Lab Order Pap Smear With [...]
--- OUTSIDE RECORDS SUMMARY | 2017-09-15 07:57 | External Medical Summary | Continuity of Care Document ---
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) - (routine) w/o abn findings 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 (general) - (routine) w/o abn findings Supervision of elderly multigravida, - second trimester 14 weeks gestation of - Supervision of elderly multigravida, - first trimester 10 weeks gestation of - Supervision of elderly multigravida, - second trimester 17 weeks gestation of - Pap Smear Screening, Cervix - Procedures Procedure Date OB Visit No Charge OB Prepayment Agreement Results Test Name Date and Time Measure Units Reference Range Abnormal Flag Comments Unknown Advance Directives Directive Yes / No Effective Date File Name Unknown Encounters Encounter Practice Location Reason(s) Diagnoses Date Provider Care Team Description For Visit Members Associates Jayesh Supervision Bhupinder Cuellar In Womens of elderly -2016 Francois. 700 Provider: brea [facility] [place] [address], [place] Bhupinder Khan, [place], [id number] Jose Alfredo 120, 700 Medical [id number], weeks [facility] Dr BISWAS gestation of [place], Jose Alfredo 120, tel: [phone], [place], [address] [place]. [id number]. tel: tel: [phone] Ashely [place] Supervision Bhupinder Referring In Womens of elderly -2016 Francois. 700 Provider: aisha Pembertongravimelinda, [facility] [address], second Center Bhupinder Khan, [place], Jose Alfredo 120, 700 Medical [id number], weeks Jayesh, [place] gestation of [place], Jose Alfredo 120, tel: [phone], [place], [address] [place]. [id number]. tel: tel: [phone] Ashely [place] Supervision Bhupinder Referring In Womens of elderly -2016 Francois. 700 Provider: lorena Pembertonavimelinda, [facility] Francois [address], first Center Bhupinder Khan [place], [id number] Jose Alfredo 120, 700 Medical [id number], weeks Jayesh [place] gestation of [place], Jose Alfredo 120, tel: [phone], [place], [address] [place]. [id number]. tel: tel: [phone] Ashely [place] Encntr for Eric Referring In Womens level vial sealer exam -2017 Sherry. Provider: Health GENO, (general) 700 Sherry [address], (routine) w/o Alexis Kumari [place], abn Center Makeda Khan Medical , findingsPap Jose Alfredo 120, Center Smear [place], Jose Alfredo 120, tel: Screening, [place], [place], [address] Cervix [id number], [id number]. [place]. tel: tel: [phone] Ashely [place] Encntr for Eric Referring In Womens level vial sealer exam -2015 Sherry. Provider: Health GENO, (general) 700 Sherry [address], (routine) w/o Alexis Kumari [place], abn findings Center Makeda Khan [id number], Jose Alfredo 120, Center Dr [place], Jose Alfredo 120, tel:21 Jayesh [place], [id number], [id number]. [place]. tel: [phone] Ashely [place] Elder In Womens -2010 Jackie. Health [place], [address], [place], [place], [place], [place], [id number], [place], [address], [place]. tel:[phone] tel:[phone] Family History Family Member Diagnosis Age At Onset Maternal Grandmother Hypertension Mother COPD Mother Epilepsy Paternal Aunt Cancer, breast Immunizations Vaccine Date Status Comments Influenza, injectable, quadrivalent, completed Source: Other Provider preservative free, 3 yrs or older Payers Payer name Insurance type Covered republican ID Authorization(s) [facility] [id number] [facility] [id number] Social History Type Description Quantity Date Captured Alcohol Use Details Caffeine Use Details Unknown Tobacco Use Status Smoking Status Former smoker Vital Signs Date / Height Weight BMI Pulse Blood Temperature Respiratory Body Head BMI Time: Rate Pressure Rate Surface Circumference percentile Area 129.60 25.3 / lbs 1 mm[Hg] 4:35 kg/m PM eter (2) Chief Complaint And Reason For Visit Unknown Chief Complaint And Reason For Visit Reason For Referral Reason For Referral Unknown Plan Of Care Date Type Action Status Appointment Lety Bacon BOOKED Appointment Lety Bacon BOOKED Appointment Lety Bacon BOOKED Appointment Lety Bacon BOOKED Future Order: Lab Order Pap Smear With [...]
--- OUTSIDE RECORDS SUMMARY | 2017-09-15 07:57 | External Medical Summary | Continuity of Care Document ---
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 [id number]. tel:+[phone] tel:[phone] Ashely [place] Bhupinder In Womens -2016 Francois. 700 Cheri LORA, Medical [address], Center Alexis Khan [place], Jose Alfredo 120, [id number], [place] Jay[place], tel:[phone], [address] [place]. tel:[phone] Ashely [place] Supervision Bhupinder Referring In Womens of elderly -2016 Francois. 700 Provider: Cheri LORA multigravida, [facility] Francois [address], first Center Bhupinder Khan, [place], [id number] Jose Alfredo 120, 700 Medical [id number], weeks Jayesh, [place] gestation of [place], Jose Alfredo 120, tel:[phone], [place], [address] [place]. [id number]. 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 Provider: Cheri LORA, (general) 700 Sherry [address], (routine) w/o Medical Alexis [place], abn Center Makeda Khan Medical [id number], findingsPap Jose Alfredo 120, Center Dr BIS[place] Smear [place], Jose Alfredo 120, tel:+21 Andrew, [place], [address] Cervix [id number], [id number]. [place]. 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 Provider: Cheri LORA, (general) 700 Sherry [address], (routine) w/o Alexis Kumari [place], abn findings Center Makeda Khan Medical [id number], Jose Alfredo 120, Center Dr [place], Jose Alfredo 120, tel:+21 [place], [id number], [id number]. [place]. tel: tel:[phone] Ashely [place] Elder In Womens -2010 Jackie. Health [facility], [address], [place], [place], [id number], [place], [address], [facility]. tel:[phone] tel:[phone] Family History Family Member Diagnosis Age At Onset Maternal Grandmother Hypertension Mother COPD Mother Epilepsy Paternal Aunt Cancer, breast Immunizations Vaccine Date Status Comments Influenza, injectable, quadrivalent, completed Source: Other Provider preservative free, 3 yrs or older Payers Payer name Insurance type Covered green party ID Authorization(s) [facility] [id number] [facility] [id number] Social History Type Description Quantity Date Captured [...]
[2017-09-15] MEDS: D5LR 1,000 ML IV PRN ×2 (08:21→17:42)
[2017-09-15] MEDS: LR 1,000 ML IV PRN ×3 (08:25→14:43)
[2017-09-15 08:36] VITALS: BMI 31.6
[2017-09-15] MEDS ORDERED: DiphenhydrAMINE 50 MG/ML INJECTION IVP PRN ×2 (14:37→19:59)
[2017-09-15] MEDS ORDERED: NALOXONE 0.4 MG/ML INJECTION IVP PRN (14:37)
[2017-09-15] MEDS ORDERED: ROPIVACAINE 1% 10MG/ML INJ 200 MG, SUFentanil 50 MCG in NS 100 ML EPI PRN (14:37)
[2017-09-15] MEDS ORDERED: ONDANSETRON 4 MG/2 ML INJECTION IVP PRN (14:37)
--- NOTE | 2017-09-15 14:42 | Anesthesia Preoperative Report ---
Anesthesia Epidural/Spinal Rec - Date and Time Date: 09/15/17 Procedure: Labor Epidural Plan: Epidural - Vital Signs Vital Signs: Temperature 99.1 F 09/15/17 08:30 Pulse Rate 90 09/15/17 08:30 Respiratory Rate 18 09/15/17 08:30 Blood Pressure 120/64 09/15/17 08:30 NPO since: 0500 /Para: P:1 Heart Rate: 136 - Medictaions & Allergies Inpatient Medications: Current Medications Acetaminophen (Tylenol) 500 - 1,000 mg PO Q4H PRN PRN Reason: Pain Al Hydroxide/Mg Hydroxide (Maalox Plus) 30 ml PO Q3H PRN PRN Reason: Indigestion Calcium Carbonate (Tums) 500 - 1,000 mg PO Q2H PRN PRN Reason: Indigestion Carboprost Tromethamine (Hemabate) 250 mcg IM O PRN PRN Reason: .Downtime Diphenhydramine HCl (Benadryl) 25 - 50 mg IVP Q3H PRN PRN Reason: Itching Dextrose/Lactated Ringer's (Dextrose 5%-Lactated Ringers) 1,000 mls @ 125 mls/ hr IV .Q8H PRN PRN Reason: Labor Last Admin: 09/15/17 08:21 Dose: 125 mls/hr Lactated Ringer's (Lactated Ringers) 1,000 mls @ 999 mls/hr IV .Q1H1M PRN Last Admin: 09/15/17 08:25 Dose: 999 mls/hr Oxytocin (Pitocin Drip) 30 unit in 500 mls @ 2 mls/hr IV .Q24H PRN; Protocol PRN Reason: Induction/Augmentation Last Admin: 09/15/17 08:24 Dose: 2 mls/hr Ropivacaine 200 mg/ Sufentanil Citrate 50 mcg/ Sodium Chloride 121 mls @ 0 mls/ hr EPI PRN PRN; As Directed PRN Reason: Protocol Lidocaine HCl (Xylocaine-Mpf 1% Vial) 0.2 mg ID O PRN PRN Reason: IV Start Methylergonovine Maleate (Methergine) 0.2 mg IM O PRN Misoprostol (Cytotec) 800 mcg SD ONCE PRN Naloxone HCl (Narcan) 0.1 mg IVP Q2M PRN PRN Reason: Respiratory distress Ondansetron HCl (Zofran) 4 mg IVP Q6H PRN PRN Reason: Nausea &/or vomiting Allergies/Adverse Reactions: Allergies Allergy/AdvReac Type Severity Reaction Status Date / Time No Known Allergies Allergy Unverified 03/27/13 17:31 - Home Medications Home Medications: Home Medications Medication Instructions Recorded Confirmed Type Cetirizine HCl [Zyrtec] 10 mg PO DAILY #0 03/27/13 History Acetaminophen [Tylenol] 09/01/17 History Vitamins 09/01/17 History - Medical History Respiratory: DENIES: Asthma Cardiovascular: DENIES: Angina, Hypertension Gastrointestional: DENIES: Gastroesophageal Reflux Disease Other History: Reports: Now DENIES: Anesthesia Reactions - Surgical History Reproductive Surgery/Treatment: DENIES: Section Anesthesia Reactions: None Hx Family Anesthesia Reaction: No History of Motion Sickness: No - Social History Smoking Status: Former smoker Second Hand Exposure: No Substance Use Type: does not use Hx Chewing Tobacco Use: No - Pertinent Findings Lab Data: CBC and BMP 09/15/17 08:23 - Physical Exam Respiratory Exam: lungs clear, bilateral breath sounds equal Cardiovascular Exam: regular rate and rhythm - Airway Assessment Mallampati Score: II TMD: 3 Fingerbreadths Neck Extension: good Overall Assessment: may be difficult mask vent, may be difficult intubation - ASA ASA Score: 2 - Discussion Discussion: Discussed risks/options/alternatives of anesthesia and questions answered. Patient consents. Nursing pain assessment noted. Anesthesia Discussion: spouse Attestation Statement: Prior to the delivery of any anesthetic medication, I examined the patient, developed the plan, obtained the patient's consent and discussed the risk and benefits of the procedure with the patient/guardian.
[2017-09-15] MEDS ORDERED: CITRIC ACID/SODIUM CITRATE 30ml PO ONE (18:06)
[2017-09-15] MEDS ORDERED: CEFAZOLIN PREMIX (MC ONLY) 2 GM/50 ML BAG IV ONE (18:06)
[2017-09-15] MEDS ORDERED: FAMOTIDINE PB 20 MG/50 ML BAG IV ONE (18:06)
[2017-09-15] MEDS ORDERED: MORPHINE SULFATE PF 5mg/10ml INJ (Duramorph) ONE (18:24)
[2017-09-15] MEDS ORDERED: SODIUM BICARBONATE 8.4% (50mEq/50ml) VIAL IV ONE (18:25)
[2017-09-15] MEDS ORDERED: LIDOCAINE 2%/EPI 1:200,000 20ml SDV PF ONE (18:25)
[2017-09-15] MEDS ORDERED: ONDANSETRON 4 MG/2 ML INJECTION ONE (18:25)
[2017-09-15] MEDS ORDERED: OXYTOCIN BOLUS BAG 30 UNIT/500 ML ML IV SCH (19:15)
[2017-09-15] MEDS ORDERED: DiphenhydrAMINE 50 MG/ML INJECTION ONE (19:21)
[2017-09-15] MEDS ORDERED: DiphenhydrAMINE 25 MG CAPSULE PO PRN (19:45)
[2017-09-15] MEDS ORDERED: SIMETHICONE 80 MG CHEWABLE TABLET PO PRN (19:45)
[2017-09-15] MEDS ORDERED: OXYTOCIN DRIP 30 UNIT/500 ML ML IV SCH (19:45)
[2017-09-15] MEDS ORDERED: HYDROCORTISONE 2.5% CREAM 30gm RECTALLY PRN (19:45)
[2017-09-15] MEDS ORDERED: NALOXONE 2 MG/2 ML INJECTION PFS IVP PRN ×2 (19:59→20:02)
[2017-09-15] MEDS ORDERED: NALBUPHINE 10 MG/ML INJECTION IVP PRN (20:02)
[2017-09-15] MEDS ORDERED: METHYLERGONOVINE 0.2 MG/ML INJECTION IM ONE (20:06)
[2017-09-15] MEDS: IBUPROFEN 800 MG TABLET PO PRN (20:55)
[2017-09-15] MEDS: HYDROCODONE/APAP 5mg/325mg TABLET PO PRN (20:56)
[2017-09-15] MEDS ORDERED: METOCLOPRAMIDE 10mg/2ml INJECTION IVP PRN (23:07)
[2017-09-15] MEDS: SIMETHICONE 80 MG CHEWABLE TABLET PO SCH (23:48)
[2017-09-15] MEDS: D5LR 1,000 ML IV SCH (23:48)
[2017-09-16] MEDS: ONDANSETRON 4 MG/2 ML INJECTION IVP PRN ×2 (01:00→05:48)
--- NOTE | 2017-09-16 07:54 | Operative Note ---
DATE OF SURGERY: 09/15/2017 PREOPERATIVE DIAGNOSES 1. 37-year-old white female, G2, P1, at 39.2 weeks gestational age. 2. Advanced maternal age. 3. Pitocin induction of labor for logistics. 4. Artificial rupture of membranes at 11:45 a.m. 5. Failure to progress. 6. Nonreassuring heart tones with Pitocin. 7. Intrauterine pressure monitor. POSTOPERATIVE DIAGNOSES 1. OP presentation. 2. Female infant, 3658 g (8 pounds 1 ounce), 7/9 Apgars (Stack Vale). PROCEDURE: Primary low transverse section. SURGEON: Francois Roe MD PL SQL DEVELOPER: Ying Paredes MD COMPLICATIONS: None. EBL: 700 ml ANESTHESIA: Epidural by Mike Martinez CRNA. BRIEF HISTORY This is a patient of mine who was brought in for induction today for logistics and advanced maternal age. Pitocin reached 20 milliunits a minute. Artificial rupture of membranes occurred at 11:45 a.m. with clear fluid. The patient never made it past 4 cm. I placed an IUPM midafternoon to confirm adequate contractions. Pitocin was turned down to 16 and then turned off, restarted at 4 :00 and then turned off again, all for heart tone issues or for tachysystole. I couldn't get a feel of which way the baby's position was in labor but at delivery we were wedged in the pelvis as OP. DESCRIPTION OF PROCEDURE After adequate epidural anesthesia, the patient was prepped and draped in the left lateral decubitus position. A Pfannenstiel skin incision was made with a sharp knife which was carried down to the fascia. Fascia was incised with the Pa scissors bilaterally and then rectus muscles were divided. Peritoneum was isolated, entered and extended cephalad and caudad. Bladder blade was inserted and the lower vesicouterine fold of the peritoneum was isolated and incised transversely and then bluntly dissected off the lower uterine segment. Bladder blade was reinserted. A transverse incision was made in the lower uterine segment and it was extended with my fingers. Clear fluid was noted. The was wedged in the pelvis in an OP presentation. With Dr. Paredes and my work were able to lift the head out of the pelvis and deliver. Infant was bulb suctioned after delivery of the head and then again after delivery of the body. Cord was doubly clamped and cut and the was received by Dr. Lindsay Marcelino of Pediatrics. Placenta was removed manually and was intact. The uterus was externalized, cleansed with moist lap sponges and then closed with 0 Monocryl in a running locking fashion. There was a little bit of bleeding just to the right of midline, so a nphnnm-ac-oxunc with 0 chromic was used and this decreased it but didn't resolve it and so 3-0 chromic was used in a superficial manner superior to the bleeding to tie off the veins x 2. Hemostasis was confirmed and bladder flap was reapproximated with the visceroperitoneum using 3-0 Monocryl in a running nonlocking fashion. The uterus was a little boggy, so we gave a shot of Methergine which resolved the tissue. The uterus was returned to the abdominal cavity and then hemostasis was reconfirmed and then abdomen was closed in layers. Peritoneum was closed using 2-0 Vicryl in a running nonlocking fashion. Fascia was closed using 0 Vicryl in a running nonlocking fashion bilaterally from the lateral aspects medially. Skin was closed using wide obie in a serial fashion. The patient went to recovery room in stable condition. [facility]
--- NOTE | 2017-09-16 09:31 | Progress Note ---
OB PP Progress Note Free Text - Date Date: 09/16/17 - Progress Note Progress Note: vss af c/o nausea disc delivery and expected pp swelling hgb reviewed q&a w/ pt and and mother.
[2017-09-16] MEDS: IBUPROFEN 800 MG TABLET PO PRN ×2 (09:33→17:24)
[2017-09-16] MEDS: SIMETHICONE 80 MG CHEWABLE TABLET PO SCH ×3 (09:33→19:58)
[2017-09-16] MEDS: DOCUSATE CALCIUM 240 MG CAPSULE PO SCH (09:33)
--- NOTE | 2017-09-16 11:14 | Anesthesia Postoperative Note ---
- Date and Time Date: 09/16/17 Time: 11:13 - Status Patient Participated in Evaluation: Patient Participated in Person Vital Signs: Temperature 97.6 F 09/16/17 06:01 Pulse Rate 92 09/16/17 06:01 Respiratory Rate 18 09/16/17 06:01 Blood Pressure 135/66 09/16/17 06:01 Pulse Oximetry 97 09/16/17 06:01 Respiratory Function: Airway Patent Cardiovascular Function: Regular Pulse Mental Status: Alert and Oriented Pain Intensity: 2 Hydration: Taking PO Fluids Complications During Recover: None Apparent Post Anesthesia Care Notes: full motor and sensation returned - Follow-Up Instructions Instructions: Per Surgeon
[2017-09-16] MEDS: D5LR 1,000 ML IV SCH ×2 (15:33→19:59)
[2017-09-16] MEDS: HYDROCODONE/APAP 5mg/325mg TABLET PO PRN ×2 (15:57→19:57)
[2017-09-17] MEDS: HYDROCODONE/APAP 5mg/325mg TABLET PO PRN ×4 (03:30→19:02)
[2017-09-17] MEDS: IBUPROFEN 800 MG TABLET PO PRN ×3 (03:31→20:52)
[2017-09-17] MEDS: SIMETHICONE 80 MG CHEWABLE TABLET PO SCH ×4 (08:40→19:02)
[2017-09-17] MEDS: DOCUSATE CALCIUM 240 MG CAPSULE PO SCH (08:40)
[2017-09-17 13:01] VITALS: RESP 16
--- NOTE | 2017-09-17 13:16 | Progress Note ---
OB PP Progress Note Free Text - Date Date: 09/17/17 - Progress Note Progress Note: vss af no c/o doing ok q&a re restrictions
[2017-09-18] MEDS: SIMETHICONE 80 MG CHEWABLE TABLET PO SCH ×2 (02:02→08:46)
[2017-09-18] MEDS: HYDROCODONE/APAP 5mg/325mg TABLET PO PRN ×3 (02:03→10:27)
[2017-09-18] MEDS: IBUPROFEN 800 MG TABLET PO PRN (06:08)
[2017-09-18] MEDS: DOCUSATE CALCIUM 240 MG CAPSULE PO SCH (08:46)
[2017-09-18 08:50] VITALS: BP 120/75; PULSE 80; TEMP 98.2; O2SAT 100
--- NOTE | 2017-09-18 09:47 | Progress Note ---
OB PP Progress Note Free Text - Date Date: 09/18/17 - Progress Note Progress Note: vss af incision c/d/i dc instructions prev reviewed disc meds f/u Thursday for staple removal q&a
== END 2017-09-18 10:45 | disposition home or self-care (01) | DRG 766 ==
LOC: MC 07:51
PROVIDERS: ADMIT Obstetrics & Gynecology; ATTEND Obstetrics & Gynecology